=== PATIENT | female | born 1955 | race Caucasian/White ===

== ENCOUNTER 2019-10-15 14:59 | Emergency (ER) | payer OTHER ==
--- NOTE | 2019-10-15 15:09 | Event Note ---
ED Screening Note ED Screening Note: pt just returned from [place] she has generalized weakness generalized fatigue she has had hot/chills, sweats no n/v/d no CP no SOB no abd pain no PMHx no allergies to meds +smoker +drinker portuguese interpretation by pts family This initial assessment/diagnostic orders/clinical plan/treatment(s) is/are subject to change based on patients health status, clinical progression and re- assessment by fellow clinical providers in the ED. Further treatment and workup at subsequent clinical providers discretion. Patient/guardian urged not to elope from the ED as their condition may be serious if not clinically assessed and managed. Initial orders include: labs, CXR
--- NOTE | 2019-10-15 16:12 | Emergency Department Report ---
- General Chief Complaint: Upper Respiratory Infection Stated Complaint: FLU, BEEN OUT OF THE COUNTRY Time Seen by Provider: 10/15/19 15:08 Source: patient Mode of arrival: Ambulatory Limitations: Language Barrier - History of Present Illness Initial Comments: Patient is 64 years old female with no significant past medical history. Patient brought to the emergency room accompanied by her son for evaluation of fever, runny nose, cough and congestion. Patient is Lao. Translation line used for gathering information. Patient landed in the airport today from a trip from [facility]. Patient stated that she stayed there for 1-1/2-month. Patient stated that she spent most of the time at home but 2 days prior to coming to [place] patient went to visit a sabianist. She stated that it was windy and since then she started having her current symptoms. Patient denied any contact with sick people with same symptoms. Patient stated that she did not visited any other countries however her flight connected in [facility]. Patient denied having being on contact with patient with same symptoms in the airplane. Patient son who is present in the room stated that they brought her to the ER because they were worried about coronavirus. Patient currently denying any shortness of breath, nausea or vomiting. No chest pain. Administration immediately notified for possible COVID-19. Patient is afebrile with stable vital signs. MD Complaint: fever, cough, rhinorrhea, nasal congestion -: days(s) (2) Severity: moderate - Related Data Allergies Allergy/AdvReac Type Severity Reaction Status Date / Time No Known Allergies Allergy Unverified 10/15/19 15:21 ED Review of Systems ROS: Stated complaint: FLU, BEEN OUT OF THE COUNTRY Other details as noted in HPI Comment: All other systems reviewed and negative Constitutional: chills, fever. denies: malaise, weakness ENT: congestion. denies: ear pain Respiratory: cough. denies: orthopnea, shortness of breath, SOB with exertion, SOB at rest, stridor, wheezing Cardiovascular: denies: chest pain, palpitations Gastrointestinal: denies: abdominal pain, nausea, vomiting Genitourinary: denies: urgency, dysuria Musculoskeletal: denies: back pain Neurological: denies: headache, weakness ED Past Medical Hx - Past Medical History Previous Medical History?: No - Surgical History Past Surgical History?: No - Social History Smoking Status: Current Every Day Smoker Substance Use Type: Alcohol ED Physical Exam - General Limitations: Language Barrier General appearance: alert, in no apparent distress - Head Head exam: Present: atraumatic, normocephalic, normal inspection - Eye Eye exam: Present: normal appearance, PERRL - ENT ENT exam: Present: normal exam, normal orophraynx, mucous membranes moist - Neck Neck exam: Present: normal inspection, full ROM. Absent: tenderness, meningismus, lymphadenopathy, thyromegaly - Respiratory Respiratory exam: Present: normal lung sounds bilaterally - Cardiovascular Cardiovascular Exam: Present: regular rate, normal rhythm, normal heart sounds - GI/Abdominal GI/Abdominal exam: Present: soft, normal bowel sounds. Absent: distended, tenderness, guarding, rebound, rigid, organomegaly, mass, bruit, pulsatile mass, hernia - Extremities Exam Extremities exam: Present: normal inspection, full ROM, normal capillary refill. Absent: tenderness, pedal edema, calf tenderness - Back Exam Back exam: Present: normal inspection, full ROM. Absent: CVA tenderness (R), CVA tenderness (L), muscle spasm, paraspinal tenderness, vertebral tenderness, rash noted - Neurological Exam Neurological exam: Present: alert, oriented X3, CN II-XII intact, normal gait, reflexes normal. Absent: motor sensory deficit - Skin Skin exam: Present: warm, intact, normal color ED Course Vital Signs 10/15/19 10/15/19 10/15/19 15:19 16:35 17:16 Temperature 98.9 F 97.3 F L 97.4 F L Pulse Rate 71 64 64 Respiratory 20 14 20 Rate Blood Pressure 157/87 Blood Pressure 135/85 131/80 [Right] O2 Sat by Pulse 99 99 99 Oximetry ED Medical Decision Making - Lab Data Result diagrams: 10/15/19 15:52 10/15/19 15:52 - Radiology Data Radiology results: report reviewed - Medical Decision Making atient is 64 years old female with no significant past medical history. Patient brought to the emergency room accompanied by her son for evaluation of fever, runny nose, cough and congestion. Patient is Lao. Translation line used for gathering information. Patient landed in the airport today from a trip from [place]. Patient stated that she stayed there for 1-1/2-month. Patient stated that she spent most of the time at home but 2 days prior to coming to [place] patient went to visit a sabianist. She stated that it was windy and since then she started having her current symptoms. Patient denied any contact with sick peo ple with same symptoms. Patient stated that she did not visited any other countries however her flight connected in [place]. Patient denied having being on contact with patient with same symptoms in the airplane. Patient son who is present in the room stated that they brought her to the ER because they were worried about coronavirus. Patient currently denying any shortness of breath, nausea or vomiting. No chest pain. Administration immediately notified for possible COVID-19. Patient is afebrile with stable vital signs. 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 For further information please refer to Ms. Johns note. labs reviewed and is negative. Negative flu test. chest x-ray is unremarkable. Critical care attestation.: If time is entered above; I have spent that time in minutes in the direct care of this critically ill patient, excluding procedure time. ED Disposition Clinical Impression: Upper respiratory infection Disposition: TO HOME OR SELFCARE Is pt being admited?: No Condition: Stable Instructions: Upper Respiratory Infection (ED) Referrals: PRIMARY CARE, [Primary Care Provider] - 3-5 Days
[2019-10-15 16:17] LABS: Basophils # (Auto) 0.1 K/mm3 (0.0-0.1); Basophils % (Auto) 1.5 % (0.0-1.8); Eosinophils # (Auto) 0.4 K/mm3 (0.0-0.4); Eosinophils % (Auto) 5.9 % (0.0-4.3); Hematocrit 36.6 % (30.3-42.9); Hemoglobin 12.2 gm/dl (10.1-14.3); Lymphocytes # (Auto) 3.1 K/mm3 (1.2-5.4); Lymphocytes % (Auto) 41.5 % (13.4-35.0); Mean Corpuscular HGB Conc 33 % (30-34); Mean Corpuscular Volume 90 fl (79-97); Monocytes # (Auto) 0.4 K/mm3 (0.0-0.8); Monocytes % (Auto) 5.4 % (0.0-7.3); Platelet Count 324 K/mm3 (140-440); Red Blood Count 4.08 M/mm3 (3.65-5.03); Red Cell Distribution Width 13.2 % (13.2-15.2)
[2019-10-15 16:38] LABS: Alanine Aminotransferase 10 units/L (7-56); Albumin 4.1 g/dL (3.9-5); BUN/Creatinine Ratio 30; Blood Urea Nitrogen 15 mg/dL (7-17); Calcium 8.9 mg/dL (8.4-10.2); Hemolysis Index 2
--- NOTE | 2019-10-15 17:14 | XRay Report ---
CHEST 1 VIEW 10/15/2019 4:10 PM INDICATION / CLINICAL INFORMATION: fever, cough, recent travel to [place]. COMPARISON: None available. FINDINGS: SUPPORT DEVICES: None. HEART / MEDIASTINUM: No significant abnormality. LUNGS / PLEURA: No significant pulmonary or pleural abnormality. No pneumothorax. ADDITIONAL FINDINGS: No significant additional findings. IMPRESSION: 1. No acute findings. Signer Name: Bienvenido Simmons MD Signed: 10/15/2019 5:10 PM Workstation Name: [id number]
[2019-10-15 19:45] VITALS: BP 139/80
== END 2019-10-15 19:49 | disposition home or self-care (01) ==
LOC: ED 14:59
DX: J06.9 Acute upper respiratory infection, unspecified (principal); F17.200 Nicotine dependence, unspecified, uncomplicated
CPT/HCPCS: 36415; 71045; 80053; 85025; 87400